=== PATIENT | female | born 1980 | race Caucasian/White ===

== ENCOUNTER 2025-03-19 12:39 | Emergency (ER) | payer MEDICAID, SELFPAY ==
[2025-03-19 12:47] VITALS: BP 115/65; PULSE 76; RESP 18; TEMP 36.7; O2SAT 95
[2025-03-19] MEDS: Sulfameth/Trimeth DS TAB 1 TAB PO (13:59)
--- NOTE | 2025-03-19 14:23 | W.ED.GENAD ---
Discharge Plan Disposition Patient Disposition: Home Condition: Stable Discharge Details Clinical Impression: Abscess of left forearm, Cellulitis of left forearm Primary Care Provider: None,None ED Provider: Henry Valencia Home Meds and New Rx's Prescriptions: New sulfamethoxazole-trimethoprim [Bactrim DS] 800-160 mg tablet 1 tab PO BID Qty: 19 0RF Discharge Instructions Instructions: Cellulitis (Skin Infection), Adult ED Additional Instructions: Please take full course of antibiotic as prescribed. Be sure to complete the full course. Please perform warm soaks and/or warm compresses twice daily as described. Monitor wound closely and return for any worsening swelling, pain, or increasing redness. Please follow-up with your primary care physician. Return to the emergency department immediately for any worsening or new concerning symptoms. Discharge Data Discharge Date/Time-TO BE ENTERED AT DEPARTURE: 03/19/25 14:33 HPI General Mode of arrival: ambulatory. Date/Time Provider Initiated Documentation: 03/19/25 12:57. Limitations to Documentation: no limitations. Information obtained by: patient. HPI Narrative: HISTORY OF PRESENT ILLNESS Patient presents with a history of an insect bite on 03/06/2025. The bite worsened, leading to urgent care visit and cephalexin prescription. Completed cephalexin course. Took ivermectin and charcoal three days ago. Bite ruptured, draining yellow pus. Area now hard, hot, and skin peeled off. Difficult to shower due to discomfort. Extracted black, hair-like object from wound. Smokes cigarettes. Denies drug use. Related Data Home Medications ?Medication ?Instructions ?Recorded ?Confirmed sulfamethoxazole 800 1 tab PO BID #19 tabs 03/19/25 mg-trimethoprim 160 mg tablet (Bactrim DS) Previous Rx's ?Medication ?Instructions ?Recorded sulfamethoxazole 800 1 tab PO BID #19 tabs 03/19/25 mg-trimethoprim 160 mg tablet (Bactrim DS) Allergies Allergy/AdvReac Type Severity Reaction Status Date / Time No Known Allergies Allergy Unverified 03/19/25 12:54 General Stated Complaint: Cellulitis MARGI: 3 Review of Systems All systems reviewed & are unremarkable except as noted in HPI and below Constitutional Constitutional: Denies fever(s) Exam Const General: cooperative and no acute distress Cardio Rate: regular rate and not tachycardic Rhythm: regular rhythm Skin Other: left proximal forearm: 3cm circular ulcerated area with induration and localized erythema. no fluctuance. No discharge. Extrem General: no edema Other: left wrist and elbow with FROM; distal sensation and motor intact; 2+ radial Course Vital Signs Vital signs: Vital Signs Temperature 36.7 C 03/19/25 12:47 Pulse 76 03/19/25 12:47 Respiratory Rate 18 03/19/25 12:47 Blood Pressure 115/65 03/19/25 12:47 Pulse Oximetry 95 03/19/25 12:47 Temperature 36.7 C 03/19/25 12:47 Temperature Source Oral 03/19/25 12:47 Pulse 76 03/19/25 12:47 Respiratory Rate 18 03/19/25 12:47 Blood Pressure 115/65 03/19/25 12:47 Pulse Oximetry 95 03/19/25 12:47 Pain Level 0 03/19/25 12:47 Procedure Abscess Drainage Provider that performed the procedure: Henry Valencia Medical Decision Making ASSESSMENT AND PLAN Initial Assessment: Patient suspects insect bite on 03/06/2025, worsened quickly. Prescribed cephalexin at urgent care. Bite became hard and hot, drained yellow pus. Took ivermectin and used charcoal. Now concerns with black string removed from wound in shower. Differential Diagnosis: - Infected insect bite with cellulitis, consider mrsa - Ruptured abscess - Foreign body: Presence of black hair-like object, patient pulled it out. ED Course: POCUS performed to check for persistent fluid collection. No focal collection. Examined foreign body with microscope and consistent with clothing fiber - suspect accumulated in wound granulation tissue. Plan to initiate MRSA coverage with bactrim. Final Assessment: 44yo female with ruptured abscess with cellulitis left forearm not improving with cephalexin. Clinical Impression: - ruptured abscess - cellulitis left forearm Disposition: Discharge home on bactrim, advised warm compressions, return if symptoms worsen or new symptoms develop. Follow-Up: Primary care for further evaluation. Patient Education: Discussed signs of infection, importance of follow-up, and return precautions. This document was written with the assistance of AISHWARYA Chavira. The patient consented to its use. PFSH All Active Problems (Updated 03/19/25 @ 14:27 by Henry Valencia MD) Cellulitis of left forearm (Acute) Abscess of left forearm (Acute) Social History Smoking/Tobacco Use Status: Never Smoking risk assessment performed?: Yes Alcohol Intake: current Alcohol Intake frequency: a few times a week Drug use: Daily Substance use type: marijuana Housing: house POCUS Exam (ED) Limited Soft Tissue Exam DATE OF EXAM: 03/19/25 TIME OF EXAM: 14:23 PROVIDER THAT PERFORMED THE STUDY: Henry Valencia IS THIS A REPEAT EXAM DURING THIS ENCOUNTER: No LOCATION OF EXAM: Upper extremity/left REASON FOR EXAM: Abscess and Redness Exam Complete DIFFERENTIAL DIAGNOSES: Soft tissue skin infection, healing abscess, no discrete fluid collection
[2025-03-19] MEDS: Diph,Pertuss(Acell),Tet Vac/Pf 0.5 ML SYR IM (14:33)
== END 2025-03-19 14:33 | disposition home or self-care (01) ==
PROVIDERS: Emergency Provider Student in an Organized Health Care Education/Training Program
DX: L02.414 Cutaneous abscess of left upper limb (principal); L03.114 Cellulitis of left upper limb; Z23 Encounter for immunization
CPT/HCPCS: 99283; 99284; 90471; 76882; 90715